=== PATIENT | male | born 1990 | race Two or more races ===

== ENCOUNTER 2017-03-21 23:47 | Emergency (ER) | payer SELFPAY ==
[~2017-03-21] VITALS: Ht 193 cm; Wt 87.0 kg
[2017-03-21 23:50] VITALS: BP 157/80
== END 2017-03-22 00:36 | disposition home or self-care (01) ==
LOC: ED 23:59
DX: R21 Rash and other nonspecific skin eruption (principal); K21.9 Gastro-esophageal reflux disease without esophagitis
CPT/HCPCS: 87491; 87591; 99284

== ENCOUNTER 2017-09-12 22:10 | Emergency (ER) | payer SELFPAY ==
[~2017-09-12] VITALS: Ht 193 cm; Wt 89.6 kg
[2017-09-12 22:14] VITALS: BP 141/80
[2017-09-12] MEDS ORDERED: DEXAMETHASONE 4 MG TABLET PO ONE (23:00)
[2017-09-12] MEDS ORDERED: DEXAMETHASONE 4 MG TABLET ONE (23:14)
== END 2017-09-13 | disposition home or self-care (01) ==
LOC: ED 23:44
DX: J02.9 Acute pharyngitis, unspecified (principal); K21.9 Gastro-esophageal reflux disease without esophagitis
CPT/HCPCS: 87081; 87880; 99284